=== PATIENT | male | born 1995 | race Caucasian/White ===

== ENCOUNTER 2018-02-09 15:13 | Inpatient (IN) | payer OTHER ==
[2018-02-09 15:49] LABS: #Eosinphils 0.1 thou/uL (0.0-0.7); #Lymphocytes 0.9 thou/uL (1.20-3.40); #Monocytes 0.9 thou/uL (0.11-0.59); #Neutrophils 12.2 thou/uL (1.40-6.50); %Basophils 0.1 % (0.0-1.0); %Eosinophils 0.7 % (0.0-10.0); %Lymphocytes 6.3 % (28.0-48.0); %Monocytes 6.2 % (0.0-4.0); %Neutrophils 86.7 % (31.0-61.0); Hemoglobin 13.8 g/dL (14.0-18.0); Mean Corpuscular HGB CONC 31.8 g/dL (32.0-36.0); Mean Corpuscular Hemoglobin 21.9 pg (25.0-35.0); Mean Corpuscular Volume 68.7 fL (78.0-98.0); Mean Platelet Volume 8.4 fL (7.4-10.4); Platelet Count 234 thou/uL (130-400); RBC Distribution Width 13.4 % (11.5-14.5); Red Blood Cell (RBC) Count 6.32 mill/uL (4.00-5.20); White Blood Cell (WBC) Count 14.1 thou/uL (4.8-10.8)
[2018-02-09] MEDS ORDERED: Piperacillin/Tazobactam 4.5 GM VIAL ONE (16:00)
[2018-02-09] MEDS ORDERED: Acetaminophen 500 MG TAB ONE (16:00)
[2018-02-09] MEDS ORDERED: Vancomycin HCl 1.5 GM in Sodium Chloride 0.9% 250 ML 300 ML IVPB ONE (16:00)
[2018-02-09 16:11] LABS: ALT (SGPT) 15 U/L (8-55); AST (SGOT) 14 U/L (5-34); Albumin 4.6 g/dL (3.5-5.0); Alkaline Phosphatase 93 U/L (Less than 750); Anion Gap 12 mmol/L (10-20); BUN (Urea Nitrogen) 10 mg/dL (8.9-20.6); Bilirubin, Total 1.4 mg/dL (0.2-1.2); Calc. Creatinine Clearance 0 mL/min (70-130); Calcium 10.1 mg/dL (7.8-10.44); Carbon Dioxide 26 mmol/L (22-29); Chloride 99 mmol/L (98-107); Estimated GFR-MDRD 69; Globulin 3.7 g/dL (2.4-3.5); Glucose 148 mg/dL (70-105); Potassium 3.5 mmol/L (3.5-5.1); Protein, Total 8.3 g/dL (6.0-8.3); Sodium 133 mmol/L (136-145)
--- NOTE | 2018-02-09 16:44 | RAD ---
RIGHT ELBOW RADIOGRAPHS 4 VIEWS: Date: 02-09-18 Provided Clinical History: Right elbow pain status post injury. FINDINGS: There is no evidence for fracture or other acute osseous abnormality. Alignment appears anatomic. Alondra nt spaces appear preserved. No evidence for elbow joint effusion. Soft tissue swelling involving the posterior aspect of the elbow and proximal forearm noted. IMPRESSION: No evidence for fracture or other acute osseous abnormality. If there is persistent clinical concern, conservative management and follow up imaging are advised. POS: NICHOLAS
[2018-02-09] MEDS ORDERED: Ondansetron HCl/PF 4 MG/2 ML Vial IVP PRN ×2 (18:06→18:12)
[2018-02-09] MEDS ORDERED: Acetaminophen 325 MG TAB PO PRN (18:06)
[2018-02-09] MEDS ORDERED: Ondansetron ODT 4 MG TAB SL PRN (18:06)
[2018-02-09] MEDS ORDERED: Pepto Bismol Chew TAB PO PRN (18:12)
[2018-02-09] MEDS ORDERED: Ondansetron ODT 4 MG TAB PO PRN (18:12)
[2018-02-09] MEDS ORDERED: Mag-Al 1200 mg/1200 mg/30 ML UDCUP PO PRN (18:12)
[2018-02-09 18:27] VITALS: BMI 26.7
[2018-02-09 18:54] LABS: Lactic Acid 0.9 mmol/L (0.5-2.2)
[2018-02-09] MEDS: Sodium Chloride 0.9% 1,000 ML IV SCH (20:15)
[2018-02-09] MEDS: traMADol HCl 50 MG TAB PO PRN (20:23)
[2018-02-09] MEDS: Acetaminophen 500 MG TAB PO PRN (20:23)
[2018-02-09] MEDS: Escitalopram Oxalate 10 mg Tablet PO SCH (21:24)
[2018-02-09] MEDS: Clindamycin/D5W 600 MG in Premix Bag 1 BAG IVPB SCH (21:26)
[2018-02-09] MEDS ORDERED: Piperacillin/Tazobactam 4.5 GM in Sodium Chloride 0.9% 100 ML IVPB SCH (22:00)
[2018-02-09] MEDS: Ibuprofen 600 MG TAB PO PRN (23:49)
[2018-02-10] MEDS: Clindamycin/D5W 600 MG in Premix Bag 1 BAG IVPB SCH ×3 (04:55→22:19)
[2018-02-10] MEDS: Sodium Chloride 0.9% 1,000 ML IV SCH ×2 (04:56→22:19)
[2018-02-10 06:34] LABS: #Eosinphils 0.4 thou/uL (0.0-0.7); #Lymphocytes 1.1 thou/uL (1.20-3.40); #Monocytes 0.9 thou/uL (0.11-0.59); #Neutrophils 7.5 thou/uL (1.40-6.50); %Basophils 0.1 % (0.0-1.0); %Eosinophils 3.7 % (0.0-10.0); %Lymphocytes 11.2 % (28.0-48.0); %Monocytes 8.8 % (0.0-4.0); %Neutrophils 76.1 % (31.0-61.0); Mean Corpuscular HGB CONC 31.8 g/dL (32.0-36.0); Mean Corpuscular Hemoglobin 22.1 pg (25.0-35.0); Mean Corpuscular Volume 69.4 fL (78.0-98.0); Mean Platelet Volume 8.4 fL (7.4-10.4); Platelet Count 170 thou/uL (130-400); RBC Distribution Width 13.4 % (11.5-14.5); Red Blood Cell (RBC) Count 4.97 mill/uL (4.00-5.20); White Blood Cell (WBC) Count 9.9 thou/uL (4.8-10.8)
[2018-02-10 06:36] LABS: ALT (SGPT) 25 U/L (8-55); AST (SGOT) 26 U/L (5-34); Albumin 3.5 g/dL (3.5-5.0); Alkaline Phosphatase 85 U/L (Less than 750); Anion Gap 9 mmol/L (10-20); BUN (Urea Nitrogen) 9 mg/dL (8.9-20.6); Bilirubin, Total 1.1 mg/dL (0.2-1.2); Calc. Creatinine Clearance 150 mL/min (70-130); Calcium 8.9 mg/dL (7.8-10.44); Carbon Dioxide 23 mmol/L (22-29); Chloride 107 mmol/L (98-107); Estimated GFR-MDRD Greater than 90; Globulin 2.6 g/dL (2.4-3.5); Glucose 118 mg/dL (70-105); Potassium 3.9 mmol/L (3.5-5.1); Protein, Total 6.1 g/dL (6.0-8.3); Sodium 135 mmol/L (136-145)
[2018-02-10] MEDS ORDERED: Sodium Chloride 0.9% 1,000 ML IV SCH (07:00)
--- NOTE | 2018-02-10 07:54 | HP ---
DATE OF ADMISSION: 02/09/2018 CHIEF COMPLAINT: Cellulitis, right elbow. HISTORY OF PRESENT ILLNESS: The patient was seen in outpatient clinic with myself, his PCP on Tuesday of this week following 1 week of worsening redness , erythema, pallor, swelling to right elbow, punctate possible bite [place] versus a puncture wound to olecranon process to right elbow likely point of entry. The patient was started on double strength Bactrim as well as high-dose Keflex. The patient tolerated medication x2 doses; however, came down with fever and chills, was instructed if any such increased swelling or fevers and chills which both happened in the interval 24 hours, presented to emergency department , patient was given 1 round of vancomycin and Zosyn in the emergency department and IV fluids. The patient has no other acute symptoms in the last 24 hours since being seen in clinic. REVIEW OF SYSTEMS: Positive fever, positive chills, positive body aches. Negative runny nose. Negative congestion. Negative cough, no chest pain, no shortness of breath, no abdomen pain, no dysuria. No lower extremity edema. Right elbow edema, pallor. No exudates. Positive on the right elbow pain, but able to still move elbow. No numbness or tingling in the extremities. 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 VITAL SIGNS: Temperature of 98.2, pulse of 85, respiratory rate of 20, oxygen saturation 98% on room air, blood pressure 123/64. LABORATORY WORK: White blood cell count of 14.1, hemoglobin of 13.8, platelet count of 234,000. Sodium 133, potassium of 3.5, chloride of 99, CO2 of 26, BUN of 10, creatinine of 1.33, glucose of 148. Lactic acid of 2.1 followed by 0.9 after IV rehydration. Calcium of 10.1, total bilirubin 1.4, albumin of 4.6, AST of 14, ALT of 15. Review of past medical, social, surgical history, past medical history include anxiety, ADD. HOME MEDICATIONS: Escitalopram 10 mg daily, Adderall 20 mg p.r.n. b.i.d. FAMILY HISTORY: Noncontributory. SOCILA HISTORY: The patient does not smoke, does not drink. PHYSICAL EXAMINATION: GENERAL: The patient is alert and oriented, in no acute distress. HEENT: Head is normocephalic, atraumatic. Extraocular movements are intact. Oral mucosa is slightly dry. NECK: Supple. HEART: Regular rate and rhythm. No murmurs auscultated at time of exam. LUNGS: Clear to auscultation bilaterally. No rubs or wheezes. ABDOMEN: Soft, nontender, positive bowel sounds throughout. EXTREMITIES: Lower extremities: Without cyanosis or edema. Left upper extremity: Normal. Right upper extremity: Swelling has not extended from mid forearm through the mid humerus, which shows approximately twice a level of swelling, nonpitting edema was 24 hours ago. The patient with intact range of motion to shoulder, right elbow, and right wrist. Erythema and pallor overlying right olecranon process. No fluctuance or expressible purulent discharge. No palpable cord of brachial artery accessory vessels. Inside review of right elbow x-ray, no fractures, no bone involvement, no subcutaneous area suggestive of any form of necrotic fasciitis. ASSESSMENT AND PLAN: Cellulitis, acute kidney injury, sepsis. Fevers, leukocytosis. Given acute kidney injury, patient likely slightly dehydrated. We will continue IV fluids, transition IV antibiotics over to clindamycin for both Streptococcus pyogenes coverage as well as Staph coverage. We will follow up on blood cultures. Continue to trend white blood cell count and renal function. We will continue the patient's citalopram. Monitor need for any Orthopedic Surgery consultation at this point in time, does not appear to involve the joint. MTDD
[2018-02-10] MEDS ORDERED: Escitalopram Oxalate 10 mg Tablet PO SCH (09:00)
--- NOTE | 2018-02-10 10:00 | PRG ---
DATE OF SERVICE: 02/10/2018 HISTORY OF PRESENT ILLNESS: Interval fever overnight controlled with Tylenol and Motrin. The patien t feels less pain and swelling in the arm; however, the caliber of arm has decreased the extension jsoelyn th cephalic and distally along the forearm and mid humerus has extended approximately 2-4 cm in each direction. The patient has no other interval acute complaints. PHYSICAL EXAMINATION: VITAL SIGNS: T-max 101 overnight, temperature this morning of 98.4, pulse of 72. During fever, the patient was tachycardic at 100, respiratory rate 20 during febrile, currently 16 this a.m., oxygen sa turation 97% on room air, blood pressure of 99/52. GENERAL: The patient is alert and oriented, in no acute distress. HEENT: Head is normocephalic, atraumatic. Extraocular movements are intact. Sclerae are clear. Or al mucosa is moist. HEART: Regular rate and rhythm. No murmurs auscultated. LUNGS: Clear to auscultation bilaterally. No rubs or wheezes. ABDOMEN: Soft, nontender, positive bowel sounds throughout. EXTREMITIES: Lower extremities without cyanosis or edema. Right upper extremity with extension of n onpitting edema to mid forearm and mid humerus. This has extended approximately 2-4 cm in each direc tion; however, the caliber of the swelling circumferentially has diminished. The amount of erythema and pallor overlying the olecranon process has improved. No areas of fluctuance. No exudates are pr esent on exam. NEUROLOGIC: The patient is alert and oriented x3, no focal deficits. Speech is normal. LABORATORY DATA: White blood cell count improved to 9.9, platelet count of 170. Sodium of 135, pota ssium of 3.9, CO2 of 29, BUN of 9, creatinine improved to 0.97, glucose of 118, total bilirubin impro chante to 1.1. No growth currently at 12 hours on blood cultures x2. ASSESSMENT AND PLAN: Sepsis, right upper extremity cellulitis, acute kidney injury and dehydration h as been resolved with IV fluids. Patient was additionally in bolus as well as IV fluids overnight. Continuing clindamycin at this point given failure profile. We will continue to monitor inpatient an d continue IV antibiotics for cellulitis. Trend cell counts and renal function. The patient is feve r free for 24 hours, may be appropriate for discharge tomorrow. We will see how this evening goes.
[2018-02-10] MEDS: Acetaminophen 500 MG TAB PO PRN ×2 (13:02→20:36)
[2018-02-10] MEDS: Escitalopram Oxalate 10 mg Tablet PO SCH (20:36)
[2018-02-10] MEDS ORDERED: Sodium Chloride 0.9% 500 ML IVPB SCH (21:30)
[2018-02-11] MEDS: Ibuprofen 600 MG TAB PO PRN ×2 (01:00→13:39)
[2018-02-11 05:18] LABS: #Eosinphils 0.4 thou/uL (0.0-0.7); #Lymphocytes 1.6 thou/uL (1.20-3.40); #Neutrophils 6.5 thou/uL (1.40-6.50); %Basophils 0.1 % (0.0-1.0); %Lymphocytes 17.1 % (28.0-48.0); %Monocytes 10.7 % (0.0-4.0); %Neutrophils 68.1 % (31.0-61.0); Hemoglobin 10.7 g/dL (14.0-18.0); Mean Corpuscular HGB CONC 31.8 g/dL (32.0-36.0); Mean Corpuscular Hemoglobin 22.2 pg (25.0-35.0); Mean Corpuscular Volume 69.8 fL (78.0-98.0); Mean Platelet Volume 8.3 fL (7.4-10.4); Platelet Count 191 thou/uL (130-400); RBC Distribution Width 13.5 % (11.5-14.5); Red Blood Cell (RBC) Count 4.84 mill/uL (4.00-5.20); White Blood Cell (WBC) Count 9.5 thou/uL (4.8-10.8)
[2018-02-11] MEDS: Clindamycin/D5W 600 MG in Premix Bag 1 BAG IVPB SCH ×3 (05:33→21:35)
[2018-02-11 05:38] LABS: ALT (SGPT) 28 U/L (8-55); AST (SGOT) 26 U/L (5-34); Albumin 3.5 g/dL (3.5-5.0); Alkaline Phosphatase 114 U/L (Less than 750); Anion Gap 13 mmol/L (10-20); BUN (Urea Nitrogen) 5 mg/dL (8.9-20.6); Bilirubin, Total 0.9 mg/dL (0.2-1.2); Calc. Creatinine Clearance 177 mL/min (70-130); Calcium 8.8 mg/dL (7.8-10.44); Carbon Dioxide 21 mmol/L (22-29); Chloride 106 mmol/L (98-107); Estimated GFR-MDRD Greater than 90; Globulin 2.9 g/dL (2.4-3.5); Glucose 109 mg/dL (70-105); Potassium 3.7 mmol/L (3.5-5.1); Protein, Total 6.4 g/dL (6.0-8.3); Sodium 136 mmol/L (136-145)
[2018-02-11] MEDS: Sodium Chloride 0.9% 1,000 ML IV SCH ×2 (09:32→21:36)
--- NOTE | 2018-02-11 09:50 | PRG ---
DATE OF SERVICE: 02/11/2018 SUBJECTIVE: The patient is feeling better this morning. His swelling and redness has decreased [place] edly from last night, but still prominent according to the patient. OBJECTIVE: VITAL SIGNS: Temperature 98.2, pulse 66, respirations 18, pulse ox 97, blood pressure 111/68, T-max at midnight was 100.1. HEART: Regular rate and rhythm. LUNGS: Clear. ABDOMEN: Soft. EXTREMITIES: Right elbow with decreased erythema, but still with edema, mid arm to mid forearm. Abr asion/puncture dubois of the right elbow. 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 LABORATORY DATA: White count decreased from 14-9.5, H&H is 10 and 33. Electrolytes are normal. Cre atinine 0.82, BUN 5, glucose 109. ASSESSMENT: Right upper extremity cellulitis, improving secondary to [employer] training, and abrasion s of the right elbow. PLAN: 1. We will continue another 24 hours of IV antibiotics and hopefully can discharge in the a.m. 2. Keep right upper extremity elevated and increase activity today.
[2018-02-11] MEDS: Escitalopram Oxalate 10 mg Tablet PO SCH (20:04)
[2018-02-12] MEDS: traMADol HCl 50 MG TAB PO PRN (00:40)
[2018-02-12] MEDS: Sodium Chloride 0.9% 1,000 ML IV SCH (04:11)
[2018-02-12] MEDS: Clindamycin/D5W 600 MG in Premix Bag 1 BAG IVPB SCH ×2 (05:15→14:54)
--- NOTE | 2018-02-12 07:04 | DIS ---
DATE OF ADMISSION: 02/09/2018 DATE OF DISCHARGE: 02/12/2018 DISCHARGE DIAGNOSIS: Right arm cellulitis. DISCHARGE MEDICATIONS: Lexapro daily, Cleocin 300 one p.o. q.i.d., #40. Follow up in [address] Rosado, patient instructed no exercise until clearance by Dr. Rosado. BRIEF HISTORY: This is a 22-year-old male who was seen last week in the office with right arm rednes s, swelling, and abrasions to the right elbow. The patient does used to see on a regular basis. He was given Bactrim and Keflex. However, he developed fever and chills and presented to the ER where thad nava was admitted. HOSPITAL COURSE: The patient has been given IV clindamycin. Over several days, he has improved dram atically. He is able to fully flex his arm. The swelling and redness has decreased markedly, but st ill present, somewhat. Patient has been instructed not to exercise at all until cleared by Dr. Dominik iglesias. He is also told to return to the ER if it becomes any worse. He also has been instructed to so ak in warm water twice a day. His white count did go from 14-9.5. His electrolytes remain normal. He is doing well at this time and we will discharge and he will follow up in the a.m.
[2018-02-12 08:01] VITALS: BP 114/57; TEMP 98.2
== END 2018-02-12 17:25 | disposition home or self-care (01) | DRG 872 ==
LOC: ERS 15:13 → 2SW 16:51 → OBSVTOIN 16:51 → T4-A 02-10 15:07
PROVIDERS: ADMIT Family Medicine; ATTEND Family Medicine
DX: A41.9 Sepsis, unspecified organism (principal); L03.113 Cellulitis of right upper limb; N17.9 Acute kidney failure, unspecified; E86.0 Dehydration; S50.311A Abrasion of right elbow, initial encounter; F41.9 Anxiety disorder, unspecified; F98.8 Other specified behavioral and emotional disorders with onset usually occurring in childhood and adolescence; W22.8XXA Striking against or struck by other objects, initial encounter; Y93.75 Activity, martial arts
CPT/HCPCS: 36415; 80053; 83605; 85025; 87040; 94760; 96365; 96367; J2543; J3370; J3490; J7050; Q0162